=== PATIENT | female | born 1975 | race Caucasian/White ===

== ENCOUNTER 2017-04-14 20:04 | Emergency (ER) | payer MEDICAID ==
[~2017-04-14] VITALS: Ht 162.6 cm; Wt 68.0 kg
[~2017-04-14 20:04] MED LIST: AMO500 PO; IBUP-1542 PO; MECL25TA2 PO
[2017-04-14 20:07] VITALS: Ht 162.6 cm; Wt 68.0 kg
[2017-04-14] MEDS ORDERED: GUAI473L22 PO (20:18)
[2017-04-14] MEDS ORDERED: CETI10CA PO (20:18)
[2017-04-14] MEDS ORDERED: FLUT9.9S NASAL (20:18)
[2017-04-14] MEDS ORDERED: AZIT250T94 PO (20:18)
[2017-04-14] MEDS ORDERED: IBUP-1542 PO (20:18)
[2017-04-14] MEDS ORDERED: BENZ100C70 PO (20:21)
--- NOTE | 2017-04-14 20:27 | ERD ---
ER Documentation Chief Complaint Date/Time DATE: 04/14/17 TIME: 20:23 Chief Complaint cough x7 days, sore throat HPI 41-year-old female presents here in emergency department for complaints of cough for 7 days, sore throat for last 2 days, runny nose nasal congestion on and off wheezing and fever. Patient has been having dry cough, does not cough up any phlegm or blood. Patient has wheezing episodes. Patient denies any chest pain or palpitations. Patient is complaining of sore throat, burning pain, 4/10 scale, is worse upon swallowing. Patient did not take any medications to help with symptoms. ROS All systems reviewed and are negative except as per history of present illness. Medications Home Meds Active Scripts Benzonatate* (Tessalon Perle*) 100 Mg Capsule, 100 MG PO Q8H Y for COUGH, #20 CAP Prov:CLAUDINE THOMPSON NP 04/14/17 Fluticasone Propionate (Flonase Allergy Relief) 9.9 Ml [place].susp, 1 SPRAY NASAL BID, #1 BOTTLE TO EACH NOSTRIL Prov:CLAUDINE THOMPSON NP 04/14/17 Ibuprofen* (Motrin*) 600 Mg Tab, 600 MG PO Q6H Y for PAIN AND OR ELEVATED TEMP, #30 TAB Prov:CLAUDINE THOMPSON NP 04/14/17 Cetirizine Hcl* (Zyrtec*) 10 Mg Capsule, 10 MG PO DAILY, #30 TAB.CHEW Prov:CLAUDINE THOMPSON NP 04/14/17 Azithromycin* (Zithromax*) 250 Mg Tablet, 250 MG PO .JordynPACK DIRECTED, #6 TAB TAKE 500 MG (2 TABS) THE FIRST DAY THEN 250 MG (1 TAB) DAYS 2-5 Prov:CLAUDINE THOMPSON NP 04/14/17 Meclizine Hcl* (Antivert*) 25 Mg Tablet, 25 MG PO Q6H Y for DIZZINESS, #20 TAB Prov:NOY CANTRELL 04/01/16 Ibuprofen* (Motrin*) 600 Mg Tab, 600 MG PO Q6H Y for PAIN AND OR ELEVATED TEMP, #30 TAB Prov:CLAUDINE THOMPSON NP 01/21/16 Amoxicillin* (Amoxicillin*) 500 Mg Cap, 500 MG PO TID for 10 Days, CAP Prov:CLAUDINE THOMPSONDiogenes VACUUM APPLICATOR OPERATOR 01/21/16 Meclizine Hcl* (Antivert*) 25 Mg Tablet, 25 MG PO Q6H Y for dizziness, #20 TAB Prov:CLAUDINE THOMPSONDiogenes VACUUM APPLICATOR OPERATOR 01/21/16 Reported Medications [none] Unknown Strength No Conflict Check 01/21/16 Allergies Allergies: Coded Allergies: No Known Allergy (Unverified , 08/27/14) PMhx/Soc History of Surgery: Yes (tubal ligation 2 years ago) Anesthesia Reaction: No Hx Neurological Disorder: No Hx Respiratory Disorders: No Hx Cardiac Disorders: No Hx Psychiatric Problems: No Hx Miscellaneous Medical Probl: No Hx Alcohol Use: No Hx Substance Use: No Hx Tobacco Use: No FmHx Family History: No coronary disease, No diabetes, No other Physical Exam Vitals Vital Signs Date Time Temp Pulse Resp B/P Pulse Ox O2 Delivery O2 Flow Rate FiO2 04/14/17 20:07 99.0 81 20 129/67 98 Physical Exam GENERAL: The patient is well developed and appropriate for usual state of health, in no apparent distress. HEENT: Atraumatic. Ears: Normal tympanic membrane, no erythema or bulging. No ear canal swelling. No ear discharge. Nose: Erythematous nasal turbinates with clear nasal that she. Throat: oropharynx erythematous with postnasal drip. No tonsillar swelling or tonsillar exudates. No lymphadenopathy. CHEST: Clear to auscultation bilaterally. There are no rales, wheezes or rhonchi. HEART: Regular rate and rhythm. No murmurs, clicks, rubs or gallops. No S3 or S4. ABDOMEN: Soft, nontender and nondistended. Good bowel sounds. No rebound or guarding. No gross peritonitis. No gross organomegaly or masses. No Fuentes sign or McBurney point tenderness. BACK: No midline or flank tenderness. EXTREMITIES: Equal pulses bilaterally. There is no peripheral clubbing, cyanosis or edema. No focal swelling or erythema. Full range of motion. Grossly neurovascularly intact. NEURO: Alert and oriented. Cranial nerves 2-12 intact. Motor strength in all 4 extremities with 5/5 strength. Sensation grossly intact. Normal speech and gait. SKIN: There is no apparent rash or petechia. The skin is warm and dry. HEMATOLOGIC AND LYMPHATIC: There is no evidence of excessive bruising or lymphedema. No gross cervical, axillary, or inguinal lymphadenopathy. Procedures/MDM Medical Decision Making: Patient symptoms are most likely consistent with acute bronchitis, which possible atypical infection. There is low suspicion for Pneumonia at this time since patients lungs sounds are clear, patient O2 saturation is normal and patient doesnt show any respiratory distress. Radiology exam is not indicated at this. There is low suspicion for other cardiopulmonary emergencies at this time such as CHF, Pulmonary Embolism, Pneumothorax, or any other cardiopulmonary emergencies at this time. There is low suspicion for sepsis. Patient appears well and is hemodynamically stable. Fever is controlled with medicines. Disposition: Home. Condition: Stable Prescriptions: Tessalon Perles, Zyrtec, albuterol, Flonase, ibuprofen, azithromycin Instructions: Patient is advised to take medications as prescribed. Patient is advised to rest. Patient advised to increase fluid intake, do humidifier at home and if possible, do salt water gargles. Patient is advised that if symptoms are worse, shortness of breath, uncontrolled fever, stridor, vomiting, worst signs and symptoms to return to emergency department immediately. Otherwise, patient is advised to follow up with primary doctor in 5-7 days. Departure Diagnosis: Primary Impression: Acute bronchitis Bronchitis organism: unspecified organism Qualified Code: J20.9 - Acute bronchitis, unspecified organism Condition: Stable Patient Instructions: Bronchitis, Antiobiotic Treatment (Adult) CLAUDINE THOMPSON NP Apr 14, 2017 20:27
== END 2017-04-14 20:27 | disposition home or self-care (01) ==
LOC: E/R 20:04
DX: J20.9 Acute bronchitis, unspecified (principal)
CPT/HCPCS: 99284

== ENCOUNTER 2017-10-10 17:29 | Emergency (ER) | payer MEDICAID ==
[~2017-10-10] VITALS: Ht 165.1 cm; Wt 68.8 kg
[~2017-10-10 17:29] MED LIST changes: -AMO500 PO; +AMOX500C2 PO; +AZIT250T94 PO; +BENZ100C70 PO; +CETI10CA PO; +FLUT9.9S NASAL
[2017-10-10 17:35] VITALS: Ht 165.1 cm; Wt 68.8 kg
[2017-10-10] MEDS ORDERED: ACETAMINOPHEN 500 MG TAB PO STA (19:02)
[2017-10-10] MEDS ORDERED: BENZ100C70 PO (19:05)
[2017-10-10] MEDS ORDERED: GUAI-106 PO (19:05)
[2017-10-10] MEDS ORDERED: ACET-2047 PO (19:05)
[2017-10-10 19:27] VITALS: BP 127/73; PULSE 77; RESP 18; TEMP 99
--- NOTE | 2017-10-10 19:58 | ERD ---
ER Documentation Chief Complaint Chief Complaint Complains of fever x 3 days HPI 42-year-old female presents to the emergency department complaining of fever, cough for the past 2 days. Patient denies any chest pain, shortness of breath, vomiting or diarrhea. She states that she has not taken any medications for this today. She admits to sore throat and ear pain. She also presents with her 4-year-old daughter who also has a cough. ROS All systems reviewed and are negative except as per history of present illness. Medications Home Meds Active Scripts Benzonatate* (Tessalon Perle*) 100 Mg Capsule, 100 MG PO Q8H Y for COUGH, #10 CAP Prov:SUNITA ALEXANDRE PA-C 10/10/17 Acetaminophen* (Acetaminophen*) 650 Mg Tablet, 650 MG PO Q6H Y for PAIN AND OR ELEVATED TEMP, #30 TAB Prov:SUNITA ALEXANDRE PA-C 10/10/17 Guaifenesin/Pseudoephedrne HCl (Mucinex D ER 1,200-120 mg Tab) 1 Each Tab.er.12h , 1 EACH PO BID for 5 Days, TAB Prov:SUNITA ALEXANDRE PA-C 10/10/17 Benzonatate* (Tessalon Perle*) 100 Mg Capsule, 100 MG PO Q8H Y for COUGH, #20 CAP Prov:CLAUDINE THOMPSON NP 04/14/17 Fluticasone Propionate (Flonase Allergy Relief) 9.9 Ml [place].susp, 1 SPRAY NASAL BID, #1 BOTTLE TO EACH NOSTRIL Prov:CLAUDINE THOMPSON NP 04/14/17 Ibuprofen* (Motrin*) 600 Mg Tab, 600 MG PO Q6H Y for PAIN AND OR ELEVATED TEMP, #30 TAB Prov:CLAUDINE THOMPSON NP 04/14/17 Cetirizine Hcl* (Zyrtec*) 10 Mg Capsule, 10 MG PO DAILY, #30 TAB.CHEW Prov:CLAUDINE THOMPSON NP 04/14/17 Azithromycin* (Zithromax*) 250 Mg Tablet, 250 MG PO .MARILYNN DIRECTED, #6 TAB TAKE 500 MG (2 TABS) THE FIRST DAY THEN 250 MG (1 TAB) DAYS 2-5 Prov:CLAUDINE THOMPSON NP 04/14/17 Meclizine Hcl* (Antivert*) 25 Mg Tablet, 25 MG PO Q6H Y for DIZZINESS, #20 TAB Prov:NOY CANTRELL C 04/01/16 Ibuprofen* (Motrin*) 600 Mg Tab, 600 MG PO Q6H Y for PAIN AND OR ELEVATED TEMP, #30 TAB Prov:CLAUDINE THOMPSON BIOMEDICAL ELECTRONICS TECHNICIAN 01/21/16 Amoxicillin* (Amoxicillin*) 500 Mg Cap, 500 MG PO TID for 10 Days, CAP Prov:CLAUDINE THOMPSON BIOMEDICAL ELECTRONICS TECHNICIAN 01/21/16 Meclizine Hcl* (Antivert*) 25 Mg Tablet, 25 MG PO Q6H Y for dizziness, #20 TAB Prov:CLAUDINE THOMPSON BIOMEDICAL ELECTRONICS TECHNICIAN 01/21/16 Reported Medications [none] Unknown Strength No Conflict Check 01/21/16 Allergies Allergies: Coded Allergies: No Known Allergy (Unverified , 08/27/14) PMhx/Soc History of Surgery: Yes (tubal ligation 2 years ago) Anesthesia Reaction: No Hx Neurological Disorder: No Hx Respiratory Disorders: No Hx Cardiac Disorders: No Hx Psychiatric Problems: No Hx Miscellaneous Medical Probl: No Hx Alcohol Use: No Hx Substance Use: No Hx Tobacco Use: No Smoking Status: Never smoker Physical Exam Vitals Vital Signs Date Time Temp Pulse Resp B/P Pulse Ox O2 Delivery O2 Flow Rate FiO2 10/10/17 19:27 99.0 77 18 127/73 98 Room Air 10/10/17 17:35 100.5 100 20 146/77 100 Physical Exam Const: [] Head: Atraumatic Eyes: Normal Conjunctiva ENT: Normal External Ears, Nose and Mouth. Neck: Full range of motion..~ No meningismus. Resp: Clear to auscultation bilaterally Cardio: Regular rate and rhythm, no murmurs Abd: Soft, non tender, non distended. Normal bowel sounds Skin: No petechiae or rashes Back: No midline or flank tenderness Ext: No cyanosis, or edema Neur: Awake and alert Psych: Normal Mood and Affect Results 24 hrs Current Medications Medications (Trade) Dose Ordered Sig/[place]isbet Route PRN Reason Start Time Stop Time Status Last Admin Dose Admin Acetaminophen (Tylenol Tab) 1,000 mg ONCE STAT PO 10/10/17 19:02 10/10/17 19:03 DC 10/10/17 19:09 Procedures/MDM This is a 42-year-old female presenting to emergency department with signs and symptoms most consistent with a viral upper respiratory infection. Patient was febrile in the ED and was given Tylenol and her fever trend downward. She is well-appearing and has stable vital signs to be discharged home to follow with primary care physician. There was no evidence of pneumonia,. Patient's lungs are clear to auscultation bilaterally. No evidence of strep pharyngitis, otitis media. She a prescription for Mucinex and Tessalon Perles were provided. Discussed return to the ER for any worsening signs or symptoms. She understands and agrees to this plan Departure Diagnosis: Primary Impression: URI (upper respiratory infection) Condition: Stable Patient Instructions: Uri, Viral, No Abx (Adult) Additional Instructions: Visite a marti keysha candelaria para un EXAMEN.Regrese a estas instalaciones si no se mejora ender esperbamos o ender le dijimos. Glenn toda la medicina mi y ender se le indic. Regrese a estas instalaciones si no se mejora ender esperbamos o ender le dijimos. SUNITA ALEXANDRE PA-C Oct 10, 2017 19:58
== END 2017-10-10 19:28 | disposition home or self-care (01) ==
LOC: FTE 17:29
DX: J06.9 Acute upper respiratory infection, unspecified (principal)
CPT/HCPCS: Z7502; Z7610; 99283